=== PATIENT | male | born 1950 | race Caucasian/White ===

== ENCOUNTER → 2017-05-10 | Outpatient (CLI) | payer MEDICARE, OTHER ==
[~2017-05-10] MED LIST: ANTIDEPRESSANT; ASPIRIN 32325 MG/TAB PO; CELEXA40 MG PO; CLONAZEPAM0.5 M1 PO; EFFEXOR XR75 MG/CAP PO; K-TAB20 PO; LASIX 40MG TABL40 MG PO; NAPROSYN500 MG PO; NORCO 325 MG-51 TAB PO; PERCOCET 325 MG1 TA2 PO; PERCOCET 325 MG1 TA3 PO; PREDNISONE 5MG5 MG PO; XARELTO10 MG PO
== END ==
LOC: COL.RAD 13:49
DX: R60.0 Localized edema (principal); M79.605 Pain in left leg

== ENCOUNTER 2017-05-12 10:03 | Emergency (ER) | payer MEDICARE, OTHER ==
[~2017-05-12] VITALS: Ht 175.3 cm; Wt 81.8 kg
[~2017-05-12 10:03] MED LIST changes: -PERCOCET 325 MG1 TA3 PO; -PREDNISONE 5MG5 MG PO; -XARELTO10 MG PO
[2017-05-12 10:07] VITALS: TEMP 98.2
[2017-05-12 10:48] LABS: BASO % 0.3 % (0.0-2.0); EOS % 0.4 % (0-4.0); GRAN # 7.2 (1.4-6.5); GRAN % 78.5 % (42.2-75.2); HEMOGLOBIN 12.3 g/dl (13.5-18.0); LYMPH # 1.3 (1.2-3.4); LYMPH % 14.1 % (20.0-51.0); MEAN CELL VOLUME 94 fl (80.0-100.0); MEAN CORPUSCULAR HEMOGLOBIN 31 pg (27.0-31.0); MEAN CORPUSCULAR HGB CONC 33 g/dl (33.0-37.0); MEAN PLATELET VOLUME 8.5 fl (7.4-10.4); MONO # 0.6 (0.1-0.6); MONO % 6.3 % (1.7-9.3); PLATELET COUNT 482 K/mm3 (130-400); RED BLOOD COUNT 3.93 M/mm3 (4.20-5.60); WHITE BLOOD COUNT 9.2 K/mm3 (4.8-10.8)
[2017-05-12 11:03] LABS: ADJUSTED CALCIUM 9.5 mg/dL (8.4-10.2); ALBUMIN 4.8 gm/dL (3.5-5.0); BILIRUBIN,TOTAL 1.5 mg/dL (0.0-1.0); C-REACTIVE PROTEIN 5.7 mg/dL (0.0-0.9); CALCIUM 10.1 mg/dL (8.4-10.2); CREATININE, serum 0.79 mg/dL (0.66-1.25); POTASSIUM 4.7 mmol/L (3.4-5.0)
[2017-05-12 11:07] LABS: ERYTHROCYTE SEDIMENTATION RATE 46 mm/hr (0-30)
[2017-05-12] MEDS ORDERED: XARELTO10 MG PO (11:28)
[2017-05-12] MEDS ORDERED: PREDNISONE 5MG5 MG PO (11:30)
[2017-05-12] MEDS ORDERED: PERCOCET 325 MG1 TA3 PO (11:39)
[2017-05-12 11:47] VITALS: BP 139/85; PULSE 78
== END 2017-05-12 12:00 | disposition home or self-care (01) ==
LOC: COL.ER 10:03
PROVIDERS: Emergency Medicine
DX: M25.562 Pain in left knee (principal); Z96.652 Presence of left artificial knee joint
CPT/HCPCS: J1170; J1885; J2405; J7030

== ENCOUNTER 2017-12-21 13:23 | Outpatient (RCR) | payer SELFPAY ==
[~2017-12-21 13:23] MED LIST changes: +PERCOCET 325 MG1 TA3 PO; +PREDNISONE 5MG5 MG PO; +XARELTO10 MG PO
== END 2018-01-08 | disposition home or self-care (01) ==
LOC: COL.CR
DX: Z02.9 Encounter for administrative examinations, unspecified (principal)

== ENCOUNTER 2018-01-11 13:22 | Outpatient (RCR) | payer SELFPAY | END 2018-04-11 | disposition home or self-care (01) | LOC: COL.CR | DX: Z02.89 Encounter for other administrative examinations (principal) ==

== ENCOUNTER → 2018-07-17 | Outpatient (CLI) | payer MEDICARE, OTHER | LOC: COL.RAD 08:06 | DX: Z13.6 Encounter for screening for cardiovascular disorders (principal) ==

== ENCOUNTER → 2019-02-01 | Outpatient (CLI) | payer MEDICARE, OTHER | LOC: COL.RAD 07:26 | DX: K21.9 Gastro-esophageal reflux disease without esophagitis (principal); R07.89 Other chest pain; R68.81 Early satiety; K29.70 Gastritis, unspecified, without bleeding | CPT/HCPCS: A9541 ==

== ENCOUNTER 2019-02-16 09:28 | Day surgery (SDC) | payer MEDICARE, OTHER ==
[~2019-02-16] VITALS: Ht 175.3 cm; Wt 84.0 kg
[2019-02-16 09:53] VITALS: BP 135/88; PULSE 56; TEMP 97.1
[2019-02-16] MEDS ORDERED: PROTONIX40 MG/Pack PO (09:59)
[2019-02-16] MEDS ORDERED: KLONOPIN 1MG1 MG PO (10:00)
[2019-02-16] MEDS ORDERED: PROSCAR 5MG5 MG PO (10:00)
[2019-02-16 11:25] VITALS: BP 108/75; PULSE 61; TEMP 97.2
--- NOTE | 2019-02-16 11:25 | NUR ---
Pt returned via cart to [facility]. Pt A&O. Ambulated with SBA to recliner in bay. Pts VSS-see flowsheet. present. Pt requested water only, did not want to eat at this time. Denied needs or concerns. Legs elevated and warm blanket placed on pt. Call light in reach.
[2019-02-16 11:40] VITALS: BP 106/81; PULSE 57
[2019-02-16 11:55] VITALS: BP 128/87; PULSE 47
[2019-02-16 12:10] VITALS: BP 140/88; PULSE 49
--- NOTE | 2019-02-16 12:30 | NUR ---
Pt tolerated water. VS remain stable. IV removed from RFA, catheter tip intact. Pressure dressing applied. Discharge teaching completed, pt and verbalized understanding. Pt dressed and taken via wheelchair to private vehicle for dc home with driving.
== END 2019-02-16 12:30 | disposition home or self-care (01) ==
LOC: SDCO 09:28
DX: Z12.11 Encounter for screening for malignant neoplasm of colon (principal); Z86.010 Personal history of colon polyps; Z80.0 Family history of malignant neoplasm of digestive organs; D12.2 Benign neoplasm of ascending colon; R01.1 Cardiac murmur, unspecified; E78.00 Pure hypercholesterolemia, unspecified; F32.9 Major depressive disorder, single episode, unspecified; G47.33 Obstructive sleep apnea (adult) (pediatric); R20.2 Paresthesia of skin; Z79.899 Other long term (current) drug therapy; Z90.49 Acquired absence of other specified parts of digestive tract; Z96.641 Presence of right artificial hip joint; Z96.652 Presence of left artificial knee joint; Z87.891 Personal history of nicotine dependence; K21.9 Gastro-esophageal reflux disease without esophagitis
CPT/HCPCS: J2704; J7120

== ENCOUNTER 2020-12-31 09:51 | Emergency (ER) | payer MEDICARE, OTHER ==
[~2020-12-31] VITALS: Ht 175.3 cm; Wt 91.8 kg
[~2020-12-31 09:51] MED LIST changes: +KLONOPIN 1MG1 MG PO; +PROSCAR 5MG5 MG PO; +PROTONIX40 MG/Pack PO
[2020-12-31 10:01] VITALS: TEMP 98.3
[2020-12-31 10:22] LABS: BASO # 0.1 (0.0-0.2); BASO % 0.8 % (0.0-2.0); EOS # 0.2 (0.0-0.7); EOS % 2.7 % (0-4.0); GRAN # 3.1 (1.4-6.5); GRAN % 52.3 % (42.2-75.2); HEMATOCRIT 42.6 % (42.0-52.0); HEMOGLOBIN 14.6 g/dl (13.5-18.0); LYMPH % 34.1 % (20.0-51.0); MEAN CELL VOLUME 91 fl (80.0-100.0); MEAN CORPUSCULAR HEMOGLOBIN 31 pg (27.0-31.0); MEAN CORPUSCULAR HGB CONC 34 g/dl (33.0-37.0); MEAN PLATELET VOLUME 8.9 fl (7.4-10.4); MONO # 0.6 (0.1-0.6); MONO % 9.6 % (1.7-9.3); PLATELET COUNT 302 K/mm3 (130-400); RED BLOOD COUNT 4.68 M/mm3 (4.20-5.60); REDCELL DISTRIBUTION WIDTH-CV 13.2 % (11.5-14.5)
[2020-12-31 10:28] LABS: ALANINE AMINOTRANSFERASE 25 U/L (4-49); ALBUMIN 4.2 gm/dL (3.5-5.0); ALKALINE PHOSPHATASE 85 U/L (50-136); ANION GAP 7 mmol/L (7-16); AST,SGOT 34 U/L (15-37); BILIRUBIN,TOTAL 0.6 mg/dL (0.0-1.0); BLOOD UREA NITROGEN 19 mg/dL (9-20); CALCIUM 9.6 mg/dL (8.4-10.2); CARBON DIOXIDE 26 mmol/L (22-30); CHLORIDE 105 mmol/L (98-107); CREATININE, serum 0.73 (0.66-1.25); GLUCOSE 99 mg/dL (74-106); POTASSIUM 4.3 mmol/L (3.4-5.0); SODIUM 138 mmol/L (137-145); TOTAL PROTEIN 7.5 gm/dL (6.4-8.2)
[2020-12-31 10:45] LABS: TROPONIN-I < 0.012 ng/mL (0.000-0.035)
[2020-12-31] MEDS ORDERED: NEB MC (11:57)
[2020-12-31] MEDS ORDERED: PREDNISONE50 MG PO (11:57)
[2020-12-31] MEDS ORDERED: IPRATROPIUM BROM3 M1 IH (11:57)
[2020-12-31 12:24] VITALS: BP 130/73; PULSE 56
== END 2020-12-31 12:25 ==
LOC: COL.ER 09:51
PROVIDERS: Physician Assistant
DX: R05 Cough (principal); R07.89 Other chest pain; R06.00 Dyspnea, unspecified; I10 Essential (primary) hypertension; F41.9 Anxiety disorder, unspecified; K21.9 Gastro-esophageal reflux disease without esophagitis; F32.9 Major depressive disorder, single episode, unspecified; Z87.891 Personal history of nicotine dependence; Z20.822 Contact with and (suspected) exposure to COVID-19; Z79.899 Other long term (current) drug therapy

== ENCOUNTER → 2021-02-18 | Outpatient (CLI) | payer MEDICARE, OTHER ==
[~2021-02-18] MED LIST changes: +IPRATROPIUM BROM3 M1 IH; +NEB MC; +PREDNISONE50 MG PO
== END ==
LOC: COL.VAS 11:12
DX: I08.0 Rheumatic disorders of both mitral and aortic valves (principal)

== ENCOUNTER → 2021-05-05 | Outpatient (CLI) | payer MEDICARE, OTHER | LOC: COL.PUL 13:00 | DX: R06.02 Shortness of breath (principal) | CPT/HCPCS: J7674 ==

== ENCOUNTER → 2022-06-29 | Outpatient (CLI) | payer MEDICARE, OTHER | LOC: MHCPAIN 15:10 | DX: M54.31 Sciatica, right side (principal); M51.36 Other intervertebral disc degeneration, lumbar region; M54.2 Cervicalgia | CPT/HCPCS: G0463; J3301 ==

== ENCOUNTER → 2022-06-30 | Outpatient (CLI) | payer MEDICARE, OTHER | LOC: MHCPAIN 10:30 | DX: M54.31 Sciatica, right side (principal); M79.18 Myalgia, other site ==

== ENCOUNTER → 2022-07-01 | Outpatient (CLI) | payer MEDICARE, OTHER | LOC: COL.RAD 09:34 | DX: M47.22 Other spondylosis with radiculopathy, cervical region (principal); M48.02 Spinal stenosis, cervical region; M25.78 Osteophyte, vertebrae ==

== ENCOUNTER → 2022-07-21 | Outpatient (CLI) | payer MEDICARE, OTHER | LOC: MHCPAIN 15:59 | DX: M79.671 Pain in right foot (principal); M54.31 Sciatica, right side; M47.812 Spondylosis without myelopathy or radiculopathy, cervical region; M51.36 Other intervertebral disc degeneration, lumbar region; M54.2 Cervicalgia | CPT/HCPCS: G0463 ==